=== PATIENT | male | born 1965 | race African-American/Black ===

== ENCOUNTER 2019-02-22 20:23 | Emergency (ER) | payer SELFPAY ==
[~2019-02-22] VITALS: Ht 170.2 cm; Wt 122.2 kg
[2019-02-22 21:41] LABS: CLARITY URINE CLOUDY (CLEAR); COLOR URINE YELLOW (YELLOW); KETONES URINE TRACE (NEGATIVE); LEUKOCYTE ESTERASE URINE 2+ (NEGATIVE); NITRITE URINE NEGATIVE (NEGATIVE); OCCULT BLOOD URINE 3+ (NEGATIVE); PROTEIN URINE 1+ (NEGATIVE); SPECIFIC GRAVITY URINE 1.034 (1.005-1.030)
[2019-02-22] MEDS ORDERED: CEFTRIAXONE 1 G PREMIX 50 ML IV NR (22:30)
[2019-02-22 23:12] LABS: BASOPHILS % 0.4 % (0.0-2.0); EOSINOPHILS % 1.5 % (0.0-5.0); HEMATOCRIT. 41.2 % (42.0-52.0); HEMOGLOBIN. 13.9 g/dL (14.0-18.0); LYMPHOCYTES % 31.8 % (20.0-50.0); MEAN CORPUSCULAR VOLUME 86.1 fL (80.0-94.0); MEAN PLATELET VOLUME 7.6 fl (7.4-10.4); MONOCYTES % 7.8 % (2.0-8.0); NEUTROPHILS % 58.5 % (40.0-76.0); PLATELET 213 x1000/uL (130-400); RED BLOOD CELL COUNT 4.78 mill/uL (4.7-6.1)
[2019-02-22 23:19] LABS: CHLORIDE 108 mEq/L (98-107)
[2019-02-23 00:51] VITALS: BP 132/78
== END 2019-02-23 00:54 | disposition home or self-care (01) ==
LOC: ER 20:23
DX: N39.0 Urinary tract infection, site not specified (principal); R31.9 Hematuria, unspecified
CPT/HCPCS: 36415; 74176; 80053; 81003; 85025; 87077; 87086; 87186; 96365; 96366; 99284; J0696